=== PATIENT | female | born 1965 | race Caucasian/White ===

== ENCOUNTER 2017-04-19 21:03 | Emergency (ER) | payer OTHER ==
[2017-04-19] MEDS ORDERED: ATIVAN IV ONE (22:42)
--- NOTE | 2017-04-19 22:43 | Emergency Department Report ---
HPI - General Time Seen by Provider: 04/19/17 22:41 - HPI HPI: 51-year-old female presents with an anxiety attack after just losing a 3-year- old niece earlier tonight in the emergency room. Patient is irritable with some members of her family. Patient is tearful and agitated due to of her niece earlier tonight. Patient states she has no pain. Family states that she was with child when incident happened. She denies chest pain, shortness of breath, headache, dizziness, ED Past Medical Hx - Medications Home Medications: Home Medications Medication Instructions Recorded Confirmed Last Taken Type Diazepam Tab [Valium] 2 mg PO QHS #4 tablet 04/19/17 Unknown Rx ED Review of Systems ROS: Stated complaint: PANIC ATTACK Other details as noted in HPI Constitutional: denies: chills, fever Eyes: denies: eye pain, eye discharge, vision change ENT: denies: ear pain, throat pain Respiratory: denies: cough, shortness of breath, wheezing Cardiovascular: denies: chest pain, palpitations Endocrine: no symptoms reported Gastrointestinal: denies: abdominal pain, nausea, diarrhea Genitourinary: denies: urgency, dysuria, discharge Musculoskeletal: denies: back pain, joint swelling, arthralgia Skin: denies: rash, lesions Neurological: denies: headache, weakness, paresthesias Psychiatric: denies: anxiety, depression Hematological/Lymphatic: denies: easy bleeding, easy bruising Physical Exam - Physical Exam Physical Exam: GENERAL: Alert and oriented x3,tearful , Normal Gait, atraumatic. HEAD: Head is normocephalic and a-traumatic. EYES: Teasrful. Pupils are equal, round, and reactive to light and accommodation. LUNGS: Symetrical with respiration, No wheezing, no rales or crackles, CTAB. HEART: S1, S2 present, regular rate and rhythm without murmur, no rubs, no gallops. Non tender to palpation . SKIN: Warm and dry, No lesions, No ulceration or induration present. ED Medical Decision Making - Medical Decision Making 51-year-old female presents after loss of child accidentally few hours ago ED course: Patient received 1 mg of Ativan IV in ED. After about 10-20 minutes patient seems a bit more calm but still crying. Patient is accompanied by about 7 members of her family. She is in no acute pain or respiratory distress. I discussed with the family and that I will be giving her grief counseling as an therapist in [place] for the family. I discussed with the patient if she develops any worsening symptoms return to ED immediately. Critical care attestation.: If time is entered above; I have spent that time in minutes in the direct care of this critically ill patient, excluding procedure time. ED Disposition Clinical Impression: Grief at loss of child, Panic attack Disposition: DC- TO HOME OR SELFCARE Is pt being admited?: No Does the pt Need Aspirin: No Condition: Stable Instructions: Stress (ED), Grief and Loss (ED), Anxiety (ED) Additional Instructions: Make sure to follow up with the primary care physician as discussed. Take all your medications as you've been prescribed. I have giving her a list of grief counselors that he can follow-up with as well as therapist If you have any worsening symptoms or develop new symptoms please return to ED immediately. Prescriptions: Diazepam Tab [Valium] 2 mg PO QHS #4 tablet Referrals: NEIDA PAK MD [Primary Care Provider] - 3-5 Days Forms: Accompanied Note Time of Disposition: 23:29
[2017-04-19 22:53] VITALS: BP 131/92
== END 2017-04-20 00:10 | disposition home or self-care (01) ==
LOC: ED 21:03
DX: F43.21 Adjustment disorder with depressed mood (principal); F41.0 Panic disorder [episodic paroxysmal anxiety]
CPT/HCPCS: 82962; 96374; 99283; J2060

== ENCOUNTER 2019-04-22 13:31 | Outpatient (CLI) | payer OTHER ==
--- NOTE | 2019-04-22 16:18 | XRay Report ---
ABDOMINAL SERIES WITH CHEST X-RAY HISTORY: Bloating, constipation COMPARISON: None. FINDINGS: Single view of the chest is within normal limits. Supine and upright views of the abdomen demonstrate moderate fecal material throughout the colon. No evidence for dilated bowel, fluid levels or free air. No pathologic calcifications are identified. IMPRESSION: Mild constipation. Signer Name: Dutch Negron Jr, MD Signed: 04/22/2019 4:14 PM Workstation Name: [id number]
== END 2019-04-22 13:32 | disposition home or self-care (01) ==
LOC: XRAY 13:31
PROVIDERS: ATTEND Nurse Practitioner
DX: K59.09 Other constipation (principal); K56.49 Other impaction of intestine; R14.0 Abdominal distension (gaseous)
CPT/HCPCS: 74022